=== PATIENT | female | born 1980 | race American Indian/Alaskan Native ===

== ENCOUNTER 2019-01-06 06:33 | Emergency (ER) | payer SELFPAY ==
[2019-01-06 07:08] LABS: Basophils # (Auto) 0.1 K/mm3 (0.0-0.1); Basophils % (Auto) 1.2 % (0.0-1.8); Eosinophils % (Auto) 0.9 % (0.0-4.3); Hematocrit 34.9 % (30.3-42.9); Hemoglobin 11.6 gm/dl (10.1-14.3); Lymphocytes # (Auto) 2.1 K/mm3 (1.2-5.4); Lymphocytes % (Auto) 47.5 % (13.4-35.0); Mean Corpuscular HGB Conc 33 % (30-34); Mean Corpuscular Volume 93 fl (79-97); Monocytes # (Auto) 0.4 K/mm3 (0.0-0.8); Monocytes % (Auto) 9.7 % (0.0-7.3); Platelet Count 325 K/mm3 (140-440); Red Blood Count 3.76 M/mm3 (3.65-5.03); Red Cell Distribution Width 13.9 % (13.2-15.2)
[2019-01-06] MEDS ORDERED: TYLENOL PO ONE (07:51)
--- NOTE | 2019-01-06 07:51 | Emergency Department Report ---
ED General Adult HPI - General Chief complaint: Abdominal Pain Stated complaint: ABD/BACK PAIN Time Seen by Provider: 01/06/19 07:23 Source: patient Mode of arrival: Stretcher Limitations: No Limitations - History of Present Illness Initial comments: 38 year old female states she ordinarily has periods every 6 months. She is now about 29 days from her last period. She states that she has suprapubic cramping which feels like cycle. She has presented to the emergency department with this complaint. He does not complain of difficulty in urinating but states she urinates twice a day. She's had no recent fever or chills. She denies vaginal discharge. She is not vomiting. She does complain of some nausea. She does not have a parent coach. -: This morning Location: abdomen (suprapubic) Radiation: non-radiation Severity scale (0 -10): 3 Quality: other (cramping) Consistency: intermittent Improves with: none Associated Symptoms: denies other symptoms, nausea/vomiting - Related Data Previous Rx's Medication Instructions Recorded Last Taken Type Ondansetron [Zofran ODT TAB] 4 mg PO ONCE PRN #7 tab.rapdis 01/06/19 Unknown Rx traMADol [Ultram] 50 mg PO Q6HR PRN #7 tablet 01/06/19 Unknown Rx Allergies Allergy/AdvReac Type Severity Reaction Status Date / Time Penicillins Allergy Hives Verified 01/06/19 08:25 ED Review of Systems ROS: Stated complaint: ABD/BACK PAIN Other details as noted in HPI Constitutional: denies: chills, fever Eyes: denies: eye pain, eye discharge, vision change ENT: denies: ear pain, throat pain Respiratory: denies: cough, shortness of breath, wheezing Cardiovascular: denies: chest pain, palpitations Endocrine: no symptoms reported Gastrointestinal: abdominal pain, nausea. denies: diarrhea Genitourinary: denies: urgency, dysuria, discharge Musculoskeletal: denies: back pain, joint swelling, arthralgia Skin: denies: rash, lesions Neurological: denies: headache, weakness, paresthesias Psychiatric: denies: anxiety, depression Hematological/Lymphatic: denies: easy bleeding, easy bruising ED Past Medical Hx - Past Medical History Previous Medical History?: No Hx Congestive Heart Failure: No Hx of Cancer: No Hx Arthritis: No Hx Seizures: Yes (takes Dilantin) Hx Asthma: No - Surgical History Past Surgical History?: No - Social History Smoking Status: Never Smoker - Medications Home Medications: Home Medications Medication Instructions Recorded Confirmed Last Taken Type Ondansetron [Zofran ODT TAB] 4 mg PO ONCE PRN #7 tab.rapdis 01/06/19 Unknown Rx traMADol [Ultram] 50 mg PO Q6HR PRN #7 tablet 01/06/19 Unknown Rx ED Physical Exam - General Limitations: No Limitations General appearance: alert, in no apparent distress - Head Head exam: Present: atraumatic, normocephalic - Eye Eye exam: Present: normal appearance. Absent: scleral icterus - ENT ENT exam: Present: mucous membranes moist - Neck Neck exam: Present: normal inspection - Respiratory Respiratory exam: Present: normal lung sounds bilaterally. Absent: respiratory distress - Cardiovascular Cardiovascular Exam: Present: regular rate, normal rhythm. Absent: systolic murmur, diastolic murmur, rubs, gallop - GI/Abdominal GI/Abdominal exam: Present: soft, normal bowel sounds. Absent: distended, tenderness, guarding, rebound, rigid, organomegaly, mass, bruit, pulsatile mass, hernia - Extremities Exam Extremities exam: Present: normal inspection - Back Exam Back exam: Present: normal inspection - Neurological Exam Neurological exam: Present: alert, oriented X3, CN II-XII intact. Absent: motor sensory deficit - Psychiatric Psychiatric exam: Present: normal affect, normal mood - Skin Skin exam: Present: warm, dry, intact, normal color. Absent: rash ED Course Vital Signs 01/06/19 01/06/19 01/06/19 06:38 06:51 07:22 Temperature 98.9 F Pulse Rate 67 58 L Respiratory 18 16 Rate Blood Pressure 151/79 Blood Pressure 127/63 117/69 [Right] O2 Sat by Pulse 100 100 98 Oximetry 01/06/19 08:06 Temperature Pulse Rate 70 Respiratory 14 Rate Blood Pressure Blood Pressure 103/60 [Right] O2 Sat by Pulse Oximetry - Reevaluation(s) Reevaluation #1: No vomiting. Tolerating by mouth fluids. No complaint of pain. 01/06/19 08:37 ED Medical Decision Making - Lab Data Result diagrams: 01/06/19 Unknown 01/06/19 Unknown Laboratory Results - last 24 hr 01/06/19 Unknown WBC 4.4 L RBC 3.76 Hgb 11.6 Hct 34.9 MCV 93 MCH 31 MCHC 33 RDW 13.9 Plt Count 325 Lymph % (Auto) 47.5 H [place] % (Auto) 9.7 H Eos % (Auto) 0.9 Baso % (Auto) 1.2 Lymph # 2.1 [place] # 0.4 Eos # 0.0 Baso # 0.1 Seg Neutrophils % 40.7 Seg Neutrophils # 1.8 Laboratory Results - last 24 hr 01/06/19 01/06/19 01/06/19 06:41 Unknown Unknown WBC 4.4 L RBC 3.76 Hgb 11.6 Hct 34.9 MCV 93 MCH 31 MCHC 33 RDW 13.9 Plt Count 325 Lymph % (Auto) 47.5 H [place] % (Auto) 9.7 H Eos % (Auto) 0.9 Baso % (Auto) 1.2 Lymph # 2.1 [place] # 0.4 Eos # 0.0 Baso # 0.1 Seg Neutrophils % 40.7 Seg Neutrophils # 1.8 Sodium 143 Potassium 4.5 Chloride 104.8 Carbon Dioxide 23 Anion Gap 20 BUN 10 Creatinine 0.8 Estimated GFR > 60 BUN/Creatinine Ratio 13 Glucose 106 H Calcium 8.8 Total Bilirubin < 0.20 AST 47 H ALT 45 Alkaline Phosphatase 84 Total Protein 6.7 Albumin 3.7 L Albumin/Globulin Ratio 1.2 Lipase 48 Urine Color Yellow Urine Turbidity Slightly-cloudy Urine pH 5.0 Ur Specific [place] 1.031 H Urine Protein 30 mg/dl Urine Glucose (UA) Neg Urine Ketones Neg Urine Blood Neg Urine Nitrite Neg Urine Bilirubin Neg Urine Urobilinogen < 2.0 Ur Leukocyte Esterase Tr Urine WBC (Auto) 5.0 Urine RBC (Auto) 5.0 U Epithel Cells (Auto) 19.0 H Urine Mucus Few Urine HCG, Qual Negative Critical care attestation.: If time is entered above; I have spent that time in minutes in the direct care of this critically ill patient, excluding procedure time. ED Disposition Clinical Impression: Abdominal pain Qualifiers: Abdominal location: lower abdomen, unspecified Qualified Code(s): R10.30 - Lower abdominal pain, unspecified Disposition: DC- TO HOME OR SELFCARE Is pt being admited?: No Does the pt Need Aspirin: No Condition: Stable Instructions: Abdominal Pain (ED) Additional Instructions: Increase fluids. Rx as needed. Referral to [employer] [facility] for further evaluation. Prescriptions: traMADol [Ultram] 50 mg PO Q6HR PRN #7 tablet PRN Reason: Pain Ondansetron [Zofran ODT TAB] 4 mg PO ONCE PRN #7 tab.rapdis PRN Reason: Nausea Referrals: MELISSA SHELLEY MD [Staff Physician] - 2-3 Days Time of Disposition: 08:37
[2019-01-06 07:59] LABS: Alanine Aminotransferase 45 units/L (7-56); Albumin 3.7 g/dL (3.9-5); BUN/Creatinine Ratio 13; Blood Urea Nitrogen 10 mg/dL (7-17); Calcium 8.8 mg/dL (8.4-10.2); Hemolysis Index 19
[2019-01-06 08:03] LABS: Bilirubin,Urine NEG (Negative); Blood,Urine NEG (Negative); Color,Urine Yellow (Yellow); Mucus,Urine FEW /HPF; Urobilinogen,Urine < 2.0 mg/dL (<2.0)
[2019-01-06] MEDS ORDERED: ZOFRAN ONE (08:03)
[2019-01-06] MEDS ORDERED: ZOFRAN ODT PO ONE (08:04)
[2019-01-06 08:07] VITALS: BP 103/60
[2019-01-06 08:07] LABS: HCG Qualitative,Urine Negative (Negative)
[2019-01-06] MEDS ORDERED: ZOFRAN IV ONE (08:07)
== END 2019-01-06 08:45 | disposition home or self-care (01) ==
LOC: ED 06:33
DX: R10.30 Lower abdominal pain, unspecified (principal); Z88.0 Allergy status to penicillin
CPT/HCPCS: 36415; 80053; 81001; 81025; 83690; 85025; 96374; 99283; J2405